=== PATIENT | male | born 1965 | race Caucasian/White ===

== ENCOUNTER 2018-04-27 09:00 | Outpatient (CLI) | payer OTHER, SELFPAY ==
--- NOTE | 2018-04-27 | PFT_ITS ---
PULMONARY FUNCTION TEST REPORT Patient identification - Heriberto Amezcua DATE OF - 65 DATE OF SERVICE - April 27, 2018 REQUESTING PROVIDER - Tatyana Canchola NP INTERPRETATION OF STUDY Spirometry shows mild obstructive airways disease with no significant bronchodilator response. IMPRESSION Mild obstructive airways disease with no significant bronchodilator response. Clinical correlation recommended. Lelo Hodge M.D. CASSIUS/anisa T - 04/28/2018
[2018-04-27] MEDS: Inhaler, Assist Device 1 EACH MC (15:38)
[2018-04-27] MEDS: Albuterol HFA 18 GM 200 PUFF INH IH (15:38)
== END 2018-04-27 09:20 ==
PROVIDERS: PCP Nurse Practitioner; Visit Provider Nurse Practitioner
DX: J45.909 Unspecified asthma, uncomplicated (principal)
CPT/HCPCS: 94060

== ENCOUNTER 2018-05-12 13:35 | Emergency (ER) | payer OTHER, SELFPAY ==
--- NOTE | 2018-05-12 14:05 | NUR.NOTE ---
pt slipped on ice at 1420 pt landed on left shoulder since this PT has had 10/10 pain focusing on the left collar bone
[2018-05-12 14:08] VITALS: BP 125/85; PULSE 97; RESP 15; TEMP 36.8; O2SAT 97
--- NOTE | 2018-05-12 14:22 | DI.RAD_ITS ---
SYMPTOMS/DIAGNOSIS: PAIN AT LEFT SHOULDER ALL OVER S/P FALL, ? FX LEFT CLAVICLE: No fracture is identified. There are mild degenerative changes at the AC joint. IMPRESSION: No acute abnormality. LEFT SHOULDER: No fracture or dislocation is seen. There are degenerative changes at the glenohumeral joint. Mild degenerative changes are also seen at the acromioclavicular joint. IMPRESSION: Degenerative changes. No acute abnormality.
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
[2018-05-12] MEDS: Acetaminophen 500 MG TAB 1000 MG PO (14:51)
[2018-05-12] MEDS: Ibuprofen 800 MG TAB PO (14:53)
[2018-05-12 21:02] VITALS: BP 125/85; PULSE 97; RESP 15; TEMP 36.8; O2SAT 97
[2018-05-12] MEDS: Lidocaine 5% Patch 1 PATCH TP (21:02)
== END 2018-05-12 16:04 | disposition home or self-care (01) ==
PROVIDERS: Emergency Provider Student in an Organized Health Care Education/Training Program; PCP Nurse Practitioner
DX: S43.402A Unspecified sprain of left shoulder joint, initial encounter (principal); W01.0XXA Fall on same level from slipping, tripping and stumbling without subsequent striking against object, initial encounter
CPT/HCPCS: 99284; 73000; 73030; L3650

== ENCOUNTER 2018-05-18 08:15 | Outpatient (CLI) | payer OTHER, SELFPAY ==
[2018-05-18 10:38] LABS: ALT 32 U/L (12-78); AST 22 U/L (15-37); Albumin 3.9 g/dL (3.4-5.0); Alkaline Phosphatase 64 U/L (46-116); Anion Gap 9.8 mmol/L (3-11); BUN 25 mg/dL (7-18); Bilirubin, Total 0.6 mg/dL (0.2-1.0); CO2 27.2 mmol/L (21.0-32.0); CREATININE 1.17 mg/dL (0.70-1.30); Calcium 9.1 mg/dL (8.5-10.1); Chloride 106 mmol/L (98-107); Cholesterol 265 mg/dL (50-200); Glucose 117 mg/dL (70-100); HDL Cholesterol 42 mg/dL (40-60); LDL CHOLESTEROL 153 mg/dL (<100); Potassium 4.3 mmol/L (3.5-5.1); Sodium 143 mmol/L (136-145); TSH (W/Ref FT4) 1.44 uIU/mL (0.358-3.74); Total Protein 7.3 g/dL (6.4-8.2); Triglyceride 281 mg/dL (30-150)
[2018-05-19 10:20] LABS: HBs Antibody, Qual Negative; HBs Antibody, Quant <3.1 mIU/mL; Hepatitis B Core Antibody Negative (NEGAT); Hepatitis B surface Ag Negative (NEGAT); Hepatitis C Ab w Rflx HCV PCR Negative (NEGAT)
[2018-05-19 10:22] LABS: HIV-1/2 Ag & Ab Screen Negative (NEGAT)
[2018-05-19 11:57] LABS: Syphilis Serology (RPR) Negative (Negative)
[2018-05-19 13:38] LABS: Chlamydia Result Negative; GC Result Negative; Specimen Description URINE
[2018-05-20 00:22] LABS: HSV 1 PCR, Blood Negative (Negative); HSV 2 PCR, Blood Negative (Negative)
== END 2018-05-18 08:35 ==
PROVIDERS: PCP Nurse Practitioner; Visit Provider Nurse Practitioner
DX: E03.9 Hypothyroidism, unspecified (principal); E78.1 Pure hyperglyceridemia; E78.00 Pure hypercholesterolemia, unspecified; Z11.4 Encounter for screening for human immunodeficiency virus [HIV]; Z11.3 Encounter for screening for infections with a predominantly sexual mode of transmission; Z11.59 Encounter for screening for other viral diseases
CPT/HCPCS: 36415; 80053; 80061; 83721; 86704; 86706; 86803; 87340; 87389; 87491; 87529; 87591; 84443; 86592

== ENCOUNTER 2019-02-25 13:26 | Emergency (ER) | payer OTHER, SELFPAY ==
[2019-02-25 13:29] VITALS: BP 103/70; PULSE 82; RESP 18; O2SAT 96
--- NOTE | 2019-02-25 13:41 | W.ED.GENAD ---
Discharge Plan Disposition Patient Disposition: HOME Condition: Stable Discharge Details Chief Complaint: Nk/Back Pain Clinical Impression: Low back pain Primary Care Provider: Tatyana Canchola ED Provider: Stew Merino Home Meds and New Rx's Prescriptions: New cyclobenzaprine 10 mg tablet 10 mg PO TID PRN (Reason: muscle spasm) Qty: 20 RF: 0 Continued hydrocortisone [Anusol-HC] 2.5 % cream with perineal applicator 1 applic RI BID-QID PRN (Reason: hemorrhoids) Qty: 30 RF: 2 meloxicam 15 mg tablet 15 mg PO DAILY Qty: 90 RF: 3 (DME) Space Chamber Plus 1 EACH spacer Miscellaneous Qty: 1 RF: 0 levothyroxine 150 mcg tablet 150 mcg PO DAILY Qty: 90 RF: 3 gabapentin 300 mg capsule 600 mg PO BID Qty: 120 RF: 12 clonazepam [Klonopin] 1 mg tablet 1 mg PO QID Qty: 112 RF: 4 sildenafil 100 mg tablet 100 mg PO DAILY PRN (Reason: sexual activity) Qty: 3 RF: 6 trazodone 150 mg Tablet 150 mg PO DAILY RF: 0 albuterol sulfate 90 mcg/actuation Hfa Aerosol Inhaler 2 puff INHALATION PRN PRNRF: 0 Discharge Instructions Instructions: Low Back Strain (ED) Additional Instructions: take 1000mg tylenol and 600mg ibuprofen every 6 hours for pain as needed follow up with your primary care provider next week if not improving do not drink alcohol or drive if you take the cyclobenzaprine if you have high fevers, difficulty urinating or abdominal pain return to the emergency department Stand Alone Forms: Physical Therapy Referral Medical Decision Making 54 yo male comes in with right lower back pain. It started earlier today when he was bending down to tie his shoe. Denies falls, trauma and denies any fevers or ivdu.Has no weakness, normal reflexes and pulses and no saddle anesethesia. No midline back tenderness, has pain over right lower lumbar region. Given lack of trauma do not feel xray indicated. no findings to suggest sea or cauda equina and do not feel emergent MRI indicated. No infectious symptoms to suggest pathology such as osteo. His exam is consistent with back strain vs muscle spasm, and possible disc herniation. Will give toradol and tylenol here and reassess pt declined toradol, just wants ibuprofen and tylenol and would prefer d/c which is reasonable given reassurig exam. Return precautions given Differential Diagnosis Differential Diagnosis: strain, spasm, disc herniation HPI General Mode of arrival: ambulatory. Date/Time Provider Initiated Documentation: 02/25/19 13:34. Limitations to Documentation: no limitations. Information obtained by: patient. History of Present Illness 54 year old M presents to the emergency department with the chief complaint of right lower back pain, described as moderate, Patient started experiencing this hour(s) (4) No relieving factors improve symptom(s), No exacerbating factors reported . Patient did receive the following treatments prior to arrival, none Related Data Home Medications Medication Instructions Recorded Confirmed Space Chamber Plus #1 10/16/16 01/13/19 levothyroxine 150 mcg tablet 150 mcg PO DAILY #90 tab-cap 05/17/18 02/25/19 meloxicam 15 mg tablet 15 mg PO DAILY #90 tab-cap 09/09/18 02/25/19 clonazepam 1 mg tablet 1 mg PO QID #112 tab-cap 11/04/18 02/25/19 gabapentin 300 mg capsule 600 mg PO BID #120 tab-cap 11/04/18 02/25/19 hydrocortisone 2.5 % topical cream 1 applic RI BID-QID PRN #30 gm 01/13/19 02/25/19 with perineal applicator sildenafil 100 mg tablet 100 mg PO DAILY PRN #3 tab 02/11/19 02/25/19 albuterol sulfate 2 puff INHALATION PRN PRN 02/25/19 02/25/19 cyclobenzaprine 10 mg PO TID PRN #20 tab 02/25/19 trazodone 150 mg PO DAILY 02/25/19 02/25/19 Previous Rx's Medication Instructions Recorded levothyroxine 150 mcg tablet 150 mcg PO DAILY #90 tab-cap 05/17/18 meloxicam 15 mg tablet 15 mg PO DAILY #90 tab-cap 09/09/18 clonazepam 1 mg tablet 1 mg PO QID #112 tab-cap 11/04/18 gabapentin 300 mg capsule 600 mg PO BID #120 tab-cap 11/04/18 hydrocortisone 2.5 % topical cream 1 applic RI BID-QID PRN #30 gm 01/13/19 with perineal applicator sildenafil 100 mg tablet 100 mg PO DAILY PRN #3 tab 02/11/19 cyclobenzaprine 10 mg PO TID PRN #20 tab 02/25/19 Allergies Allergy/AdvReac Type Severity Reaction Status Date / Time scallops AdvReac Severe vomitting Verified 02/25/19 14:06 General Stated Complaint: Nk/Back Pain BERTHA: 3 Review of Systems All systems reviewed & are unremarkable except as noted in HPI and below Constitutional Constitutional: Denies chills, Denies fever(s) and Denies weakness Cardiovascular Cardiovascular: Denies dyspnea Respiratory Respiratory: Denies dyspnea Gastrointestinal Gastrointestinal: Denies abdominal pain, Denies nausea and Denies vomiting Musculoskeletal Musculoskeletal: Denies joint swelling Neurologic Neurologic: Denies weakness [facility] Social History (Updated 09/09/18 @ 10:12 by Zuleyka Perry RN) Smoking/Tobacco Use Status: Former Tobacco Use Alcohol Intake: current Alcohol Intake frequency: a few times a week Alcohol type: beer Drug use: Occasionally Substance use type: marijuana Adopted: Yes Caregiver/Support person: No Communication Needs: None current occupation: retired What type of physical activity do you participate in: walking Duration: 60-90 minutes/day Frequency: 3-4 times per week Seatbelt use: always Do you feel safe in your relationship?: Yes Exam Const General: no acute distress Orientation: alert HENMT Head: normal to inspection Ears: external ears normal General nose exam: external nose normal Mouth: moist mucous membranes Eyes General: appearance normal, both eyes and all related structures Neck Neck: normal visual inspection Resp Effort & Inspection: normal respiratory effort and able to speak in complete sentences Cardio Rate: regular rate Back/Spine/Pelvis Back: no CVA tenderness Skin General skin exam: no rashes or lesions noted Neuro General: alert and oriented x3 Extrem General: normal to inspection Psych Mental Status: mental status grossly normal Course Vital Signs Vital signs: Vital Signs Pulse 82 02/25/19 13:29 Respiratory Rate 18 02/25/19 13:29 Blood Pressure 103/70 02/25/19 13:29 Pulse Oximetry 96 02/25/19 13:29 Pulse 82 02/25/19 13:29 Respiratory Rate 18 02/25/19 13:29 Respiratory Effort 02/25/19 13:34 Blood Pressure 103/70 02/25/19 13:29 Blood Pressure Position Sitting 02/25/19 13:29 Pulse Oximetry 96 11/22/19 13:29 Oxygen Delivery Method Room Air 02/25/19 13:29 Oxygen Flow Rate 0 02/25/19 13:29 Pain Level 10 02/25/19 13:29
[2019-02-25] MEDS: Acetaminophen 500 MG TAB 1000 MG PO (14:29)
[2019-02-25] MEDS: Ibuprofen 600 MG TAB PO (14:29)
[2019-02-25] MEDS: Cyclobenzaprine 10 MG TAB, 3 TABS/BTL PO (14:31)
== END 2019-02-25 14:38 | disposition home or self-care (01) ==
PROVIDERS: Emergency Provider Emergency Medicine; PCP Nurse Practitioner
DX: M54.5 Low back pain (principal); J44.9 Chronic obstructive pulmonary disease, unspecified; Z87.891 Personal history of nicotine dependence
CPT/HCPCS: 96372; 99284

== ENCOUNTER 2019-09-23 13:09 | Outpatient (CLI) | payer OTHER, SELFPAY ==
[2019-09-24 17:44] LABS: COVID-19 RT-PCR UVMMC Result Negative (Negative)
== END 2019-09-23 13:29 ==
PROVIDERS: PCP Nurse Practitioner; Visit Provider Nurse Practitioner Family
DX: J02.9 Acute pharyngitis, unspecified (principal)
CPT/HCPCS: U0003

== ENCOUNTER 2019-12-09 13:14 | Emergency (ER) | payer OTHER, SELFPAY ==
[2019-12-09] VITALS (37 sets, daily range): BP systolic 104–141; BP diastolic 57–81; PULSE 45–74; RESP 12–20; TEMP 36.4–36.7; O2SAT 90–98
--- NOTE | 2019-12-09 13:15 | RT.EKG_ITS ---
APPROVED REPORT Exam: Resting ECG Patient Location: E HR:65 bpm ECG Measurements Heart Rate 65 AXIS DE 162 P 49 QRSd 105 QRS -19 QT 394 T 31 QTc 412 Conclusion Sinus rhythm...normal P axis, V-rate 60- 99. Sinus. No STEMI. Nondiagnostic.
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
--- NOTE | 2019-12-09 13:45 | DI.CT_ITS ---
EXAM: CT CHEST PE CTA CLINICAL HISTORY: pleuritic chest pain, r/o PE/pneumonia. TECHNIQUE: Imaging Protocol: Axial CT angiography was performed with multi-slice acquisition and mu lti-planar and/or 3D reconstructions. CONTRAST MATERIAL: Intravenous: Omnipaque 350 Contrast volume:85 mL COMPARISON: CR XR shoulder LT complete 2+V from 05/12/2018 FINDINGS: Pulmonary Arteries: No evidence of filling defect to suggest pulmonary emboli. Tracheobronchial tree: Patent where visualized. Mediastinum and Josie: No dominant adenopathy or fluid collection. Pulmonary parenchyma: Atelectasis or scarring is seen in the lung bases. Mild centrilobular emphysem a. Pleura: No effusion or pneumothorax. Heart: The heart is not dilated. No coronary artery calcifications are seen. No pericardial effusion. Aorta: Thoracic aorta non-dilated. No dissection. Upper abdomen: Unremarkable. Bones: Degenerative changes. Soft tissues: Unremarkable. IMPRESSION: No evidence of pulmonary embolism, thoracic aortic dissection or aneurysm. Findings were discussed with the emergency department on the date of the examination. RADIATION DOSE DELIVERED: Total DLP DATA REPOSITORY: All CT scans at this facility are submitted to the National Radiology Data Registry (NRDR) Dose Index Registry (DIR) with the [employer] (ACR). RADIATION OPTIMIZATION: All CT scans at this facility use at least one of these dose optimization te chniques: automated exposure control; mA and/or kV adjustment per patient size (includes targeted exa ms where dose is matched to clinical indication); or iterative reconstruction.
[2019-12-09] MEDS: Normal Saline 1,000 ML 1000 ML IV (14:04)
[2019-12-09 14:07] LABS: Abs Immature Grans 0.02 10^3/uL (0.0-0.06); Absolute Basophil Count 0.04 10^3/uL (0.0-0.2); Absolute Eosinophil Count 0.16 10^3/uL (0.0-0.7); Absolute Lymphocyte Count 1.83 10^3/uL (1.2-3.4); Absolute Neutrophil Count 2.77 10^3/uL (1.2-6.7); Basophils % 0.8; Eosinophils % 3.1; HCT 45.4 % (40.0-50.0); HGB 15.1 g/dL (13.5-17.5); Immature Grans % 0.4; Lymphocytes % 35.1; MCH 30.4 pg (27.0-33.0); MCHC 33.3 % (32.0-36.0); MCV 91.5 fL (80-95); MPV 11.7 fL (8.0-11.0); Monocytes % 7.7; Neutrophils % 52.9; Nucleated RBC 0 %; Platelet Count 194 10^3/uL (130-400); RBC 4.96 10^6/uL (4.36-5.78); RDW 12.6 % (11.8-14.1); WBC 5.22 10^3/uL (4.4-10.8)
[2019-12-09 14:17] LABS: Lipase 81 U/L (73-393)
[2019-12-09 14:22] LABS: PTT Activated 26.4 sec (21.0-31.4); Prothrombin Time 10.2 sec (9.3-11.0)
[2019-12-09 14:25] LABS: ALT 26 U/L (16-63); AST 10 U/L (15-37); Albumin 3.7 g/dL (3.4-5.0); Alkaline Phosphatase 55 U/L (46-116); BUN 14 mg/dL (7-18); Bilirubin, Total 0.5 mg/dL (0.2-1.0); CREATININE 1.08 mg/dL (0.70-1.30); Calcium 8.8 mg/dL (8.5-10.1); Chloride 107 mmol/L (98-107); Glucose 104 mg/dL (74-106); Magnesium 2.1 mg/dL (1.8-2.4); Potassium 3.9 mmol/L (3.5-5.1); Sodium 143 mmol/L (136-145); Total Protein 6.8 g/dL (6.4-8.2)
[2019-12-09 14:30] LABS: Troponin I < 0.05 ng/mL (<0.06)
== END 2019-12-09 18:04 | disposition home or self-care (01) ==
PROVIDERS: Emergency Provider Physician Assistant; PCP Nurse Practitioner
DX: R07.89 Other chest pain (principal); J44.9 Chronic obstructive pulmonary disease, unspecified; Z87.891 Personal history of nicotine dependence
CPT/HCPCS: 36415; 71275; 80053; 83690; 93005; 96360; 96361; 99285; 83735; 84484; 85025; 85610; 85730; 93010

== ENCOUNTER 2019-12-15 00:27 | Outpatient (CLI) | payer OTHER, SELFPAY ==
--- NOTE | 2019-12-15 13:00 | ETT_ITS ---
APPROVED REPORT Exam: Exercise Treadmill Patient Location: Out-Patient Room/Bed: Stress Nurse: Ebonie Petersen RN BMI: 30.01 Baseline Rhythm: Sinus Rhythm Indications: Patient was seen in the ED on 12/09/2019 for left sided chest pain (2/10) and occasional l eft arm numbness when hiking. Patient describes the chest discomfort as when you can ???feel your hea rt physically??? or ???like when I broke up with my fianc???. He reports the chest pain is relieved w ith sitting down. He states he has had a few episodes of chest pain/arm numbness when hiking since hi s ED visit. Medical History Medical History: Anxiety, Thyroid Issues, PTSD. Cardiac Medications: Sildenafil. Allergies: Scallops Cardiac Risk Factors: Hyperlipidemia, Asthma, COPD, Patient is adopted and does not know his family h istory. Previous Cardiac Procedures: None Pretest Chest Pain Characteristics: No chest pain Exercise History: Physically active Physical Disabilities: None Lung Sounds: CTA--with occassional inspiratory wheezes noted. Heart Sounds: Regular Stress Test Details Rest Stress HR Resting HR Supine: 60 bpm Max Heart Rate (APMHR): 166 bpm Resting HR Standin bpm Target HR (85% APMHR): 141 bpm Max HR Achieved: 179 bpm % of APMHR: 107 HR response to stress: Normal HR response to stress BP Resting BP Supine: 118/76 mmHg Resting BP Standin/80 mmHg Max BP: 178/60 mmHg BP response to stress: Normal blood pressure response to stress. ECG Resting ECG: Sinus Rhythm Stress ECG: Sinus Tachycardia ST Change: Normal Arrhythmia: None Recovery ECG: Sinus Rhythm Recovery ST Change: Normal Recovery Arrhythmia: None Clinical Reason for Termination: Fatigue Stress Symptoms: None reported per patient Exercise duration: 12 min22 sec Highest Stage Reached: Stage 4: 4.2 mph at 16% grade. Exercise capacity: 13.72 METs Functional Capacity: Above average capacity Stress ECG Conclusion 1. The patient exercised for 12 minutes (14 METS). 2. The patient no symptoms suggestive of ischemia. 3. There is no evidence of ischemia on the EKG portion of this exam. 4. The Campbell Score ( 12) estimates an annual cardiovascular mortality of 0% and a five year survival o f 96%. Using the Campbell Score there is a low probability of any angiographic coronary disease. Stress Test Summary STAGE Time (mins) Speed (mph) Grade (%) HR BP SYMPTOMS METS Supine 60 118/76 Standing 75 114/80 1 3 1.7 10 121 126/74 4.6 2 6 2.5 12 132 138/68 7 3 9 3.4 14 146 152/64 10.2 4 12 4.2 16 171 12.9 1 min recovery 164 178/60 3 min recovery 119 162/64 6 min recovery 100 126/70 9 min recovery 94 120/68 12 min recovery 87 116/72
== END 2019-12-15 00:47 ==
PROVIDERS: PCP Nurse Practitioner; Visit Provider Physician Assistant
DX: E78.5 Hyperlipidemia, unspecified; J44.9 Chronic obstructive pulmonary disease, unspecified; R07.89 Other chest pain
CPT/HCPCS: 93306; 93017

== ENCOUNTER 2019-12-15 03:10 | Outpatient (CLI) | payer OTHER, SELFPAY ==
[2019-12-15 09:57] LABS: ALT 31 U/L (16-63); AST 18 U/L (15-37); Alkaline Phosphatase 75 U/L (46-116); Anion Gap 7.7 mmol/L (3-11); BUN 20 mg/dL (7-18); Bilirubin, Total 0.5 mg/dL (0.2-1.0); CO2 27.3 mmol/L (21.0-32.0); CREATININE 1.13 mg/dL (0.70-1.30); Calcium 8.4 mg/dL (8.5-10.1); Chloride 109 mmol/L (98-107); Cholesterol 213 mg/dL (<200); Glucose 107 mg/dL (74-106); HDL Cholesterol 27 mg/dL (40-60); Potassium 4.1 mmol/L (3.5-5.1); Sodium 144 mmol/L (136-145); TSH (W/Ref FT4) 0.89 uIU/mL (0.36-3.74); Total Protein 6.7 g/dL (6.4-8.2); Triglyceride 477 mg/dL (<150)
[2019-12-15 10:12] LABS: LDL CHOLESTEROL 95 mg/dL (<100)
== END 2019-12-15 03:30 ==
PROVIDERS: PCP Nurse Practitioner; Visit Provider Nurse Practitioner
DX: E03.9 Hypothyroidism, unspecified (principal); E78.00 Pure hypercholesterolemia, unspecified
CPT/HCPCS: 36415; 80053; 80061; 83721; 84443

== ENCOUNTER 2020-04-10 01:20 | Outpatient (CLI) | payer OTHER, SELFPAY ==
--- NOTE | 2020-04-10 10:12 | DI.RAD_ITS ---
EXAM: XR SHOULDER RT COMPLETE 2+V CLINICAL HISTORY: Anterior right shoulder pain for about a month,M25.511. TECHNIQUE: 2D digital imaging was performed. COMPARISON: No exams were available for comparison FINDINGS: BONES: No acute fracture is present. No bony destructive lesion is seen. JOINTS: No dislocation present. [id number] degenerative changes are seen at the right glenohume ral joint characterized by joint space narrowing and marginal osteophytes. Mild degenerative changes are seen at the AC joint. SOFT TISSUE: Normal. IMPRESSION: Degenerative changes of the right shoulder as described. DATA REPOSITORY: RADIATION DOSE DELIVERED:
== END 2020-04-10 01:40 ==
PROVIDERS: PCP Nurse Practitioner; Visit Provider Nurse Practitioner
DX: M19.011 Primary osteoarthritis, right shoulder (principal)
CPT/HCPCS: 73030

== ENCOUNTER 2020-05-14 18:06 | Emergency (ER) | payer OTHER, SELFPAY ==
--- NOTE | 2020-05-14 18:00 | RT.EKG_ITS ---
APPROVED REPORT Exam: Resting ECG Patient Location: E HR:90 bpm ECG Measurements Heart Rate 90 AXIS IL 179 P 69 QRSd 102 QRS -8 QT 344 T 44 QTc 421 Conclusion Sinus rhythm...normal P axis, V-rate 60- 99
[2020-05-14 18:06] VITALS: BP 121/104; PULSE 96; RESP 18; TEMP 37.1; O2SAT 96
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
[2020-05-14 18:43] LABS: Abs Immature Grans 0.02 10^3/uL (0.0-0.06); Absolute Basophil Count 0.07 10^3/uL (0.0-0.2); Absolute Eosinophil Count 0.06 10^3/uL (0.0-0.7); Absolute Lymphocyte Count 1.39 10^3/uL (1.2-3.4); Absolute Monocyte Count 0.66 10^3/uL (0.1-0.8); Absolute Neutrophil Count 6.77 10^3/uL (1.2-6.7); Basophils % 0.8; Eosinophils % 0.7; HCT 46.9 % (40.0-50.0); HGB 15.8 g/dL (13.5-17.5); Immature Grans % 0.2; Lymphocytes % 15.5; MCH 30.3 pg (27.0-33.0); MCHC 33.7 % (32.0-36.0); MCV 89.8 fL (80-95); Monocytes % 7.4; Neutrophils % 75.4; Nucleated RBC 0 %; Platelet Count 203 10^3/uL (130-400); RBC 5.22 10^6/uL (4.36-5.78); RDW 12.1 % (11.8-14.1); RDW-SD 40.8 fL; WBC 8.97 10^3/uL (4.4-10.8)
[2020-05-14 18:48] LABS: BUN 18 mg/dL (7-18); CREATININE 1.1 mg/dL (0.70-1.30); Calcium 8.9 mg/dL (8.5-10.1); Chloride 111 mmol/L (98-107); Glucose 90 mg/dL (74-106); Sodium 148 mmol/L (136-145)
[2020-05-14 18:53] VITALS: PULSE 93; RESP 18; O2SAT 96
[2020-05-14 19:00] VITALS: BP 126/104; PULSE 88; RESP 22; TEMP 36.8; O2SAT 97
[2020-05-14 19:30] VITALS: BP 120/80; PULSE 94; RESP 23; TEMP 37; O2SAT 95
== END 2020-05-14 19:50 | disposition home or self-care (01) ==
LOC: ER 19:32
PROVIDERS: Emergency Provider Emergency Medicine; PCP Nurse Practitioner
DX: T68.XXXA Hypothermia, initial encounter (principal); X31.XXXA Exposure to excessive natural cold, initial encounter
CPT/HCPCS: 36415; 80048; 93005; 99283; 85025; 93010; 99284

== ENCOUNTER 2020-07-02 04:32 | Outpatient (CLI) | payer OTHER, SELFPAY ==
[2020-07-02 11:39] LABS: Hemoglobin A1C 5.7 % (<5.7)
[2020-07-02 12:24] LABS: Cholesterol 235 mg/dL (<200); Glucose 96 mg/dL (74-106); HDL Cholesterol 33 mg/dL (40-60); Triglyceride 427 mg/dL (<150)
[2020-07-02 12:44] LABS: LDL CHOLESTEROL 103 mg/dL (<100)
== END 2020-07-02 04:33 | disposition home or self-care (01) ==
LOC: LBO 04:32
PROVIDERS: Internal Medicine; PCP Nurse Practitioner; Visit Provider Nurse Practitioner
DX: E78.1 Pure hyperglyceridemia (principal); R73.01 Impaired fasting glucose
CPT/HCPCS: 36415; 80061; 82947; 83721; 83036

== ENCOUNTER → 2020-07-16 10:55 | Outpatient (BNVA) | payer OTHER, SELFPAY | PROVIDERS: PCP Nurse Practitioner; Referring Provider Nurse Practitioner; Visit Provider Surgery | DX: K64.4 Residual hemorrhoidal skin tags (principal); K64.9 Unspecified hemorrhoids; J44.9 Chronic obstructive pulmonary disease, unspecified; F12.90 Cannabis use, unspecified, uncomplicated | CPT/HCPCS: 99202; 99213 ==

== ENCOUNTER → 2020-07-25 11:06 | Outpatient (BNVA) | payer OTHER, SELFPAY | PROVIDERS: PCP Nurse Practitioner; Referring Provider Nurse Practitioner; Visit Provider Student in an Organized Health Care Education/Training Program | DX: M25.511 Pain in right shoulder (principal); M75.41 Impingement syndrome of right shoulder | CPT/HCPCS: 99203; 99213 ==

== ENCOUNTER 2020-08-23 02:08 | Outpatient (CLI) | payer OTHER, SELFPAY ==
--- NOTE | 2020-08-23 07:15 | DI.MRI_ITS ---
Exam(s) MR UPPER JOINT RT WO EXAM: MR UPPER JOINT RT WO CLINICAL HISTORY: R SHOULDER PAIN,ROTATOR CUFF IMPINGEMENT,TRAUMATIC TEAR RT ROTATOR CUFF TECHNIQUE: Multiplanar multisequence MRI of the shoulder was performed. COMPARISON: CR XR SHOULDER RT COMPLETE 2+V from 04/10/2020 FINDINGS: MARROW:There is no evidence of fracture, Hill-Sachs deformity, nor ominous osseous lesions. There is a 15 x 8 millimeter septated degenerative subarticular cyst in the posterolateral aspect of the humer al head subjacent to the infraspinatus insertion site on the posterior aspect of the greater tuberosi ty. There is also subarticular edema in the osseous glenoid as well as a degenerative subarticular c yst measuring 5 x 4 millimeters in the inferior aspect of the osseous glenoid and another adjacent sm aller intraosseous cysts at the same location. There does not appear to be an obvious bony Bankart l esion at this level. ROTATOR CUFF MECHANISM: AC JOINT/ACROMIUM: There are mild degenerative changes in the AC joint. No downgoing osteophytes. M ild impingement. There is no evidence of os acromiale. Supraspinatus: There is partial thickness articular side tearing superimposed upon tendinitis signal. There is no retraction of the musculotendinous junction. No prominent muscle belly atrophy. Infraspinatus: Intact. No evidence of tear nor muscle atrophy. Conglomeration of degenerative subar ticular cysts are seen in the posterolateral humeral head immediately subjacent to the intact infrasp inatus tendon. There is no atrophy of the infraspinatus muscle belly. Teres Minor: Intact. No evidence of tear nor muscle atrophy. Subscapularis/anterior cuff: Intact. No abnormal signal at the level of the multipennate insertional fibers. No significant tear nor atrophy. BICEPS TENDON/LABRUM: Normally position in the intertubercular groove. No evidence of displacement. However, there is signal abnormality at the biceps anchor as well as in the superior labrum at and p osterior to the biceps insertion, consistent with element of SLAP tear. This labral tear extends int o the posterior labrum. There is also intrasubstance signal abnormality in the anterior labrum consi stent an element of tearing. There is also attenuation of the inferior labrum. There is no evidence of paralabral cyst. There is fluid in the long head biceps tendon sheath although this is probably continuation of fluid from the moderate-sized glenohumeral joint effusion. GLENOHUMERAL JOINT: There are significant osteoarthritic degenerative changes including significant c artilage thinning, degenerative subarticular cysts and bone edema as described above as well as moder ate size osteophyte on the inferior articular surface of the humeral head. There is also synovial th ickening noted in the inferior recess. Inferior glenohumeral ligament is intact. QUADRILATERAL SPACE: No evidence of mass in the region of the axillary nerve and dorsal circumflex hu meral vessels. Visualized triceps muscle at this level appears unremarkable. IMPRESSION: 1. There are significant osteoarthritic degenerative changes in the glenohumeral joint including sign ificant cartilage loss, subarticular bone edema and degenerative subarticular cysts in the osseous gl enoid, as well as osteophytes. There is a glenohumeral joint effusion of moderate size and extending down the biceps tendon sheath and there is some synovial thickening which is most evident in the inf erior recess. There is no obvious loose intra-articular body within the joint space nor within the b iceps tendon sheath.. 2. There is articular surface partial thickness tearing of the supraspinatus but without a full-thick ness tear and there is no retraction musculotendinous junction nor muscle atrophy. The other muscula r components of the rotator cuff mechanism are intact. A lumbar a ortiz of degenerative subarticular cysts are seen in the posterior aspect of the greater tuberosity subjacent to intact infraspinatus te ndon insertion. 3. There is signal abnormality consistent with tearing at the level of the superior labrum attachment site of the biceps as well as extending posteriorly in SLAP-type fashion and extending into the post erior labrum. There is also some tearing of the anterior labrum evident. There is no evidence of pa ralabral cyst. DATA REPOSITORY:
== END 2020-08-23 02:28 ==
LOC: DI 02:08
PROVIDERS: PCP Nurse Practitioner; Visit Provider Student in an Organized Health Care Education/Training Program
DX: S46.011A Strain of muscle(s) and tendon(s) of the rotator cuff of right shoulder, initial encounter (principal); M75.41 Impingement syndrome of right shoulder; M19.011 Primary osteoarthritis, right shoulder
CPT/HCPCS: 73221

== ENCOUNTER → 2020-08-28 10:35 | Outpatient (BNVA) | payer OTHER, SELFPAY | PROVIDERS: PCP Nurse Practitioner; Referring Provider Nurse Practitioner; Visit Provider Student in an Organized Health Care Education/Training Program | DX: S46.011D Strain of muscle(s) and tendon(s) of the rotator cuff of right shoulder, subsequent encounter (principal); M75.41 Impingement syndrome of right shoulder; M19.011 Primary osteoarthritis, right shoulder; X58.XXXD Exposure to other specified factors, subsequent encounter | CPT/HCPCS: 99213; 99214 ==

== ENCOUNTER 2020-10-04 03:09 | Outpatient (CLI) | payer OTHER, SELFPAY ==
--- NOTE | 2020-10-04 08:15 | DI.RAD_ITS ---
Exam(s) RF JOINT INJECTION FLUORO GUID EXAM: RF JOINT INJECTION FLUORO GUID CLINICAL HISTORY: R SHOULDER PAIN, TRAUMATIC TEAR, ROTATOR CUFF IMPINGMENT SYNDROME TECHNIQUE: Fluoroscopy provided. Radiologist not present. CONTRAST MATERIAL: None COMPARISON: No exams were available for comparison FINDINGS: Fluoroscopy was provided for right shoulder injection Submitted image(s) reveal placement of needle at the level of superomedial aspect of the humeral head . Intra-articular contrast injected. Please refer to the procedure report for complete details. Cumulative Dose: sergey Kothari=6.75 mGy IMPRESSION: RADIATION DOSE DELIVERED:
--- NOTE | 2020-10-04 13:53 | W.PROCNOTE ---
Date of service: 10/04/20 Time of Service: 13:39 Procedure Note Date of procedure: 10/04/20 Procedure: Right Shoulder Injection Surgeon/Proceduralist/Physician: Adonis Pearson Procedure Indications: Heriberto has had persistent pain of the RIGHT shoulder. Noninvasive measures have been tried. To serve as both diagnostic and therapeutic, an injection under fluoroscopy was recommended by Dr. Caal. I had discussed the risks of the procedure and the patient elected to proceed. Procedure Description: Heriberto was greeted in the flouroscopy room. The correct side was identified and the consent was reviewed with the patient and signed. The patient was then placed in the supine position on the fluoroscopy table. The RIGHT shoulder was then prepped with Chloraprep. The anterior injection starting point was identiifed by bony landmarks and fluoroscopy. The skin and soft tissue in the tract of the injection was anesthetized with 1% Lidocaine. A spinal needle was then inserted deep into the shoulder joint at the level of the recess between the glenoid and superior humeral head. A small amount of Omnipaque solution was injected to confirm intraarticular placement. Once confirmed, the shoulder was injected with 5cc of 0.5% Bupivicaine and 80mg of Depo-Medrol. A bandaid was placed on the injection site. The patient tolerated the procedure well and noted improvement in pre-injection pain.
[2020-10-04] MEDS: Bupivacaine 0.5% Pres-Free 10 ML VIAL IJ (14:18)
[2020-10-04] MEDS: Omnipaque 300 MG/ML 10 ML BTL IJ (14:19)
[2020-10-04] MEDS: methylPREDNISolone ACETATE 80 MG/ML VIAL IM (14:20)
== END 2020-10-04 03:29 ==
LOC: DI 03:09
PROVIDERS: PCP Nurse Practitioner; Visit Provider Student in an Organized Health Care Education/Training Program
DX: M19.011 Primary osteoarthritis, right shoulder (principal); M25.511 Pain in right shoulder
CPT/HCPCS: 20610; 77002; J1040

== ENCOUNTER 2021-02-25 10:25 | Outpatient (CLI) | payer MEDICARE, SELFPAY ==
[2021-02-25] MEDS: Albuterol HFA 18 GM 200 PUFF INH IH (16:29)
[2021-02-25] MEDS: Inhaler, Assist Device 1 EACH MC (16:30)
--- NOTE | 2021-02-26 14:34 | W.PFT ---
Date of service: 02/25/21 Time of Service: 15:11 Pulmonary Function Test Result Requesting Provider Tatyana Canchola Indications: Asthma and dyspnea Interpretation Spirometry: There is moderate airflow limitation. There is no significant bronchodilator response. Impression Moderate airflow limitation. Note: When compared to 04/27/18, the FEV1 and FVC have decreased. Clinical Correlation therefore is recommended.
== END 2021-02-25 10:26 | disposition home or self-care (01) ==
LOC: RT 10:29
PROVIDERS: PCP Nurse Practitioner; Visit Provider Nurse Practitioner
DX: J45.909 Unspecified asthma, uncomplicated (principal); R06.09 Other forms of dyspnea; F12.10 Cannabis abuse, uncomplicated; Z87.891 Personal history of nicotine dependence; T59.811S Toxic effect of smoke, accidental (unintentional), sequela; R94.2 Abnormal results of pulmonary function studies
CPT/HCPCS: 94060

== ENCOUNTER 2021-11-05 10:25 | Outpatient (REF) | payer MEDICARE, SELFPAY ==
[2021-11-07 11:07] LABS: COVID-19 RT-PCR UVMMC Result Negative (Negative)
== END 2021-11-05 10:26 | disposition home or self-care (01) ==
LOC: LBN 10:25
PROVIDERS: PCP Nurse Practitioner; Visit Provider Nurse Practitioner
DX: R51.9 Headache, unspecified (principal); R53.83 Other fatigue; Z20.822 Contact with and (suspected) exposure to COVID-19
CPT/HCPCS: 87449; U0003; U0005

== ENCOUNTER 2021-11-19 14:03 | Outpatient (CLI) | payer MEDICARE, SELFPAY ==
--- NOTE | 2021-11-19 14:00 | DI.RAD_ITS ---
Exam(s) XR SHOULDER LT COMPLETE 2+V EXAM: XR SHOULDER LT COMPLETE 2+V CLINICAL HISTORY: left shoulder pain, M25.512. TECHNIQUE: 2D digital imaging was performed. COMPARISON: CR XR SHOULDER RT COMPLETE 2+V from 04/10/2020 FINDINGS: Four views No evidence fracture nor dislocation nor calcifications in the subacromial space. There are signific ant osteoarthritic degenerative changes joint space narrowing in the glenohumeral joint. Also osteop hyte on the inferior articular surface of humeral head. Mild degenerative changes in the AC joint. No osseous lesions. Degenerative subarticular cysts noted in the osseous glenoid. IMPRESSION: Osteoarthritic degenerative changes in the glenohumeral joint. DATA REPOSITORY: RADIATION DOSE DELIVERED:
== END 2021-11-19 14:23 ==
LOC: DI 14:06
PROVIDERS: PCP Nurse Practitioner; Visit Provider Nurse Practitioner
DX: M19.012 Primary osteoarthritis, left shoulder (principal)
CPT/HCPCS: 73030

== ENCOUNTER 2021-11-21 04:06 | Outpatient (CLI) | payer MEDICARE, SELFPAY ==
[2021-11-21 09:30] LABS: HCT 44.3 % (40.0-50.0); HGB 14.3 g/dL (13.5-17.5); MCH 29.1 pg (27.0-33.0); MCHC 32.3 % (32.0-36.0); MCV 90 fL (80-95); MPV 10.4 fL (8.0-11.0); Platelet Count 264 10^3/uL (130-400); RBC 4.91 10^6/uL (4.36-5.78); RDW 13.7 % (11.8-14.1); RDW-SD 45.7 fL; WBC 5.99 10^3/uL (4.4-10.8)
[2021-11-21 10:21] LABS: ALT 40 U/L (16-63); AST 19 U/L (15-37); Albumin 3.1 g/dL (3.4-5.0); Alkaline Phosphatase 95 U/L (46-116); Anion Gap 7.9 mmol/L (3-11); BUN 17 mg/dL (7-18); Bilirubin, Total 0.5 mg/dL (0.2-1.0); CO2 28.1 mmol/L (21.0-32.0); CREATININE 1.1 mg/dL (0.70-1.30); Calcium 8.5 mg/dL (8.5-10.1); Calculated LDL 146 mg/dL (<100); Chloride 107 mmol/L (98-107); Cholesterol 212 mg/dL (<200); Glucose 110 mg/dL (74-106); HDL Cholesterol 25 mg/dL (40-60); Potassium 4.1 mmol/L (3.5-5.1); Sodium 143 mmol/L (136-145); TSH (W/Ref FT4) 0.64 uIU/mL (0.36-3.74); Total Protein 7.5 g/dL (6.4-8.2); Triglyceride 205 mg/dL (<150)
[2021-11-22 10:54] LABS: Lyme Ab w Rflx to Lyme Confirm Positive (Negative)
[2021-11-22 13:00] LABS: Lyme IgG Ab Positive (Negative); Lyme IgM Ab Positive (Negative)
[2021-11-25 00:57] LABS: Anaplasma phagocytophilum Negative (Negative); B. miyamotoi PCR Negative (Negative); Babesia divergens/MO-1 Negative (Negative); Babesia duncani Negative (Negative); Ehrlichia chaffeensis Negative (Negative); Ehrlichia ewingii/canis Negative (Negative); Ehrlichia muris eauclairensis Negative (Negative)
[2021-11-25 06:00] LABS: Babesia microti Positive (Negative)
== END 2021-11-21 04:07 | disposition home or self-care (01) ==
LOC: LBO 04:07
PROVIDERS: PCP Nurse Practitioner; Visit Provider Nurse Practitioner
DX: E03.9 Hypothyroidism, unspecified (principal); E78.1 Pure hyperglyceridemia; R53.83 Other fatigue; M25.512 Pain in left shoulder
CPT/HCPCS: 36415; 80053; 80061; 85027; 86617; 87798; 84443; 86618

== ENCOUNTER 2022-03-05 03:44 | Outpatient (CLI) | payer MEDICARE, SELFPAY ==
[2022-03-05 16:00] LABS: Hemoglobin A1C 5.5 % (<5.7)
== END 2022-03-05 03:45 | disposition home or self-care (01) ==
LOC: LBO 03:45
PROVIDERS: PCP Nurse Practitioner; Visit Provider Nurse Practitioner
DX: R73.01 Impaired fasting glucose (principal); B60.00 Babesiosis, unspecified
CPT/HCPCS: 36415; 83036; 87207

== ENCOUNTER 2022-06-04 03:03 | Outpatient (CLI) | payer MEDICARE, SELFPAY | END 2022-06-04 03:04 | disposition home or self-care (01) | PROVIDERS: PCP Nurse Practitioner; Referring Provider Nurse Practitioner; Visit Provider Nurse Practitioner | DX: Z86.19 Personal history of other infectious and parasitic diseases (principal) | CPT/HCPCS: 36415; 87207 ==

== ENCOUNTER 2022-07-02 10:21 | Outpatient (CLI) | payer MEDICARE, SELFPAY ==
--- NOTE | 2022-07-02 08:30 | DI.RAD_ITS ---
Exam(s) XR KNEE LT 3V AP,LAT,KARISSA EXAM: XR KNEE LT 3V AP,LAT,KARISSA CLINICAL HISTORY: left knee pain. TECHNIQUE: 2D digital imaging was performed of the left knee. Three images were obtained. Merchant ,AP and lateral views were obtained. COMPARISON: CR LEFT KNEE 3 VIEW COMPLETE from 06/10/2017 FINDINGS: BONES: No acute fracture is present. No bony destructive lesion is seen. JOINTS: The knee is normally aligned. No joint effusion is seen. SOFT TISSUE: Normal. IMPRESSION: Normal radiographs of the left knee. DATA REPOSITORY: RADIATION DOSE DELIVERED:
== END 2022-07-02 10:22 | disposition home or self-care (01) ==
LOC: DIORS 10:21
PROVIDERS: PCP Nurse Practitioner; Referring Provider Nurse Practitioner; Visit Provider Student in an Organized Health Care Education/Training Program
DX: S83.242A Other tear of medial meniscus, current injury, left knee, initial encounter (principal); X58.XXXA Exposure to other specified factors, initial encounter
CPT/HCPCS: 73562; 99213

== ENCOUNTER 2022-07-23 01:26 | Outpatient (CLI) | payer MEDICARE, SELFPAY ==
--- NOTE | 2022-07-23 06:45 | DI.MRI_ITS ---
Exam(s) MR LOWER JOINT LT WO EXAM: MR LOWER JOINT LT WO CLINICAL HISTORY: ?medial meniscus tear,,s83.242a, pain. TECHNIQUE: Multiplanar multisequence MRI was performed. COMPARISON: CR XR KNEE LT 3V AP,LAT,KARISSA from 07/02/2022 FINDINGS: BONES: There is no fracture or contusion pattern. JOINTS: There is mild thinning of the articular cartilage in the medial femoral tibial joint. The ar ticular cartilage is otherwise unremarkable. There is a small joint effusion. TENDONS: Extensor mechanism: Unremarkable. Medial retinaculum: Unremarkable. Lateral retinaculum: Unremarkable. Popliteus: Unremarkable. MUSCLES: Unremarkable. MENISCI: There is no evidence of a medial meniscal tear. There is mild intermediate signal seen with in the body and may represent degeneration. The lateral meniscus is unremarkable. SOFT TISSUES: There is fluid seen in the medial soft tissues posteriorly. There does appear to be a popliteal cyst present. This may represent a ruptured popliteal cyst. LIGAMENTS: Anterior Cruciate: Unremarkable. Posterior Cruciate: Unremarkable. Medial Collateral:There is fluid seen around the medial collateral ligament suggesting sprain. No ev idence of a tear. Lateral Collateral: Unremarkable. OTHER: IMPRESSION: 1. MCL sprain. 2. Findings suspicious for a ruptured popliteal cyst. 3. Mild cartilage thinning in the medial femoral tibial joint which may be degenerative in nature. 4. No evidence of a meniscal tear. 5. Joint effusion. DATA REPOSITORY:
== END 2022-07-23 01:46 ==
LOC: DI 01:26
PROVIDERS: PCP Nurse Practitioner; Visit Provider Student in an Organized Health Care Education/Training Program
DX: S83.242A Other tear of medial meniscus, current injury, left knee, initial encounter (principal)
CPT/HCPCS: 73721

== ENCOUNTER → 2022-07-29 08:39 | Outpatient (BNVA) | payer MEDICARE, SELFPAY | PROVIDERS: PCP Nurse Practitioner; Referring Provider Nurse Practitioner; Visit Provider Student in an Organized Health Care Education/Training Program | DX: S83.242A Other tear of medial meniscus, current injury, left knee, initial encounter (principal); X58.XXXA Exposure to other specified factors, initial encounter | CPT/HCPCS: 20610; 99213; J1030 ==

== ENCOUNTER → 2022-09-30 11:34 | Outpatient (BNVA) | payer MEDICARE, SELFPAY | PROVIDERS: PCP Nurse Practitioner; Referring Provider Nurse Practitioner; Visit Provider Student in an Organized Health Care Education/Training Program | DX: S83.242A Other tear of medial meniscus, current injury, left knee, initial encounter (principal); X58.XXXA Exposure to other specified factors, initial encounter | CPT/HCPCS: 99213 ==

== ENCOUNTER 2022-12-26 02:45 | Outpatient (CLI) | payer MEDICARE, SELFPAY ==
[2022-12-28 23:47] LABS: Anaplasma phagocytophilum Negative (Negative); B. miyamotoi PCR Negative (Negative); Babesia divergens/MO-1 Negative (Negative); Babesia duncani Negative (Negative); Babesia microti Negative (Negative); Ehrlichia chaffeensis Negative (Negative); Ehrlichia ewingii/canis Negative (Negative); Ehrlichia muris eauclairensis Negative (Negative)
[2022-12-29 12:00] LABS: Lyme Ab w Rflx to Lyme Confirm Negative (Negative)
== END 2022-12-26 02:46 | disposition home or self-care (01) ==
LOC: LBO 02:45
PROVIDERS: PCP Nurse Practitioner; Visit Provider Nurse Practitioner Family
DX: T14.8XXA Other injury of unspecified body region, initial encounter (principal); W57.XXXA Bitten or stung by nonvenomous insect and other nonvenomous arthropods, initial encounter
CPT/HCPCS: 36415; 87798; 86618

== ENCOUNTER → 2023-03-13 14:36 | Outpatient (CLI) | payer MEDICARE, SELFPAY ==
--- NOTE | 2023-03-13 12:30 | DI.RAD_ITS ---
Exam(s) XR CHEST 2V PA LATERAL EXAM: XR CHEST 2V PA LATERAL CLINICAL HISTORY: R/O pneumonia; J20.9 Acute bronchitis,unspecfied. TECHNIQUE: 2D digital imaging was performed. COMPARISON: Chest x-ray October 2016 FINDINGS: 2 views: Heart size is normal. The mediastinum is not widened. There are no confluent infiltrates but there is subsegmental platelike atelectasis in the lingular se gment the left lung. Mild increased markings in left lower lobe appear unchanged from 2017. IMPRESSION: There is subsegmental platelike atelectasis in the lateral left lung base which was not evident in Ju ly 2017 which is the most recent chest x-ray. No other pulmonary findings and no pleural effusions. DATA REPOSITORY: RADIATION DOSE DELIVERED:
== END ==
PROVIDERS: PCP Nurse Practitioner; Visit Provider Family Medicine
DX: J98.11 Atelectasis (principal)
CPT/HCPCS: 71046

== ENCOUNTER → 2023-05-19 10:36 | Outpatient (BNVA) | payer MEDICARE, SELFPAY | PROVIDERS: PCP Nurse Practitioner; Referring Provider Nurse Practitioner; Visit Provider Physician Assistant Surgical | DX: J44.9 Chronic obstructive pulmonary disease, unspecified (principal); F12.20 Cannabis dependence, uncomplicated | CPT/HCPCS: 99214 ==

== ENCOUNTER 2023-06-30 05:20 | Outpatient (CLI) | payer MEDICARE, SELFPAY ==
[2023-06-30 08:49] LABS: Hemoglobin A1C 5.7 % (<5.7)
[2023-06-30 09:12] LABS: ALT 28 U/L (16-63); AST 14 U/L (15-37); Albumin 3.9 g/dL (3.4-5.0); Alkaline Phosphatase 60 U/L (46-116); Anion Gap 10.1 mmol/L (3-11); BUN 20 mg/dL (7-18); Bilirubin, Total 0.5 mg/dL (0.2-1.0); CO2 27.9 mmol/L (21.0-32.0); CREATININE 1.2 mg/dL (0.70-1.30); Calculated LDL 164 mg/dL (<100); Chloride 107 mmol/L (98-107); Cholesterol 252 mg/dL (<200); Glucose 107 mg/dL (74-106); HDL Cholesterol 40 mg/dL (40-60); Sodium 145 mmol/L (136-145); Total Protein 7.5 g/dL (6.4-8.2); Triglyceride 244 mg/dL (<150)
== END 2023-06-30 05:21 | disposition home or self-care (01) ==
LOC: LBO 05:20
PROVIDERS: PCP Nurse Practitioner; Visit Provider Nurse Practitioner
DX: R73.03 Prediabetes (principal); E78.00 Pure hypercholesterolemia, unspecified
CPT/HCPCS: 36415; 80053; 80061; 83036

== ENCOUNTER → 2023-07-14 11:17 | Outpatient (BNVA) | payer MEDICARE, SELFPAY | PROVIDERS: PCP Nurse Practitioner; Referring Provider Nurse Practitioner; Visit Provider Student in an Organized Health Care Education/Training Program | DX: J44.9 Chronic obstructive pulmonary disease, unspecified (principal); F12.20 Cannabis dependence, uncomplicated | CPT/HCPCS: 99214 ==

== ENCOUNTER 2023-07-21 04:15 | Outpatient (CLI) | payer MEDICARE, SELFPAY ==
[2023-07-21] MEDS: Levalbuterol HFA 15 GM INH 4 PUFF IH (12:04)
[2023-07-21] MEDS: Inhaler, Assist Device 1 EACH MC (12:04)
--- NOTE | 2023-07-24 11:22 | W.PFT ---
Date of service: 07/21/23 Time of Service: 10:06 Pulmonary Function Test Result Indications: ACOS Interpretation Spirometry: There is mild airflow limitation. Positive bronchodilator response. Lung Volumes: Normal lung volumes Diffusion Capacity: Normal diffusion Airway Pressure: Normal airways resistance Impression Mild airflow obstruction with a bronchodilator response and a normal diffusion. Clinical Correlation therefore is recommended.
== END 2023-07-21 04:16 | disposition home or self-care (01) ==
LOC: RT 04:15
PROVIDERS: PCP Nurse Practitioner; Visit Provider Student in an Organized Health Care Education/Training Program
DX: J44.9 Chronic obstructive pulmonary disease, unspecified (principal)
CPT/HCPCS: 94060; 94726; 94729

== ENCOUNTER 2023-09-15 05:12 | Outpatient (CLI) | payer MEDICARE, SELFPAY | END 2023-09-15 05:13 | disposition home or self-care (01) | LOC: LBO 05:13 | PROVIDERS: PCP Nurse Practitioner; Visit Provider Nurse Practitioner | DX: E03.9 Hypothyroidism, unspecified (principal) | CPT/HCPCS: 36415; 84443 ==

== ENCOUNTER 2023-11-06 11:11 | Emergency (ER) | payer MEDICARE, SELFPAY ==
[2023-11-06] VITALS (37 sets, daily range): BP systolic 99–145; BP diastolic 59–90; PULSE 57–106; RESP 0–33; TEMP 36.6; O2SAT 92–98
--- NOTE | 2023-11-06 11:00 | RT.EKG_ITS ---
APPROVED REPORT Exam: Resting ECG Reason for Exam: Chest pain Patient Location: E HR:94 bpm ECG Measurements Heart Rate 94 AXIS MD 194 P 60 QRSd 126 QRS -25 QT 358 T 0 QTc 448 Conclusion Sinus rhythm...normal P axis, V-rate 60- 99 Right bundle branch block...QRSd>120, terminal axis(90,270) sinus, RBBB
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
[2023-11-06 11:31] LABS: Abs Immature Grans 0.02 10^3/uL (0.0-0.06); Absolute Basophil Count 0.05 10^3/uL (0.0-0.2); Absolute Eosinophil Count 0.11 10^3/uL (0.0-0.7); Absolute Lymphocyte Count 1.89 10^3/uL (1.2-3.4); Absolute Monocyte Count 0.54 10^3/uL (0.1-0.8); Absolute Neutrophil Count 3.62 10^3/uL (1.2-6.7); Basophils % 0.8 %; Eosinophils % 1.8 %; HCT 48.7 % (40.0-50.0); HGB 16.5 g/dL (13.5-17.5); Immature Grans % 0.3 %; Lymphocytes % 30.3 %; MCH 30.4 pg (27.0-33.0); MCHC 33.9 % (32.0-36.0); MCV 90 fL (80-95); MPV 10.3 fL (8.0-11.0); Monocytes % 8.7 %; Neutrophils % 58.1 %; Platelet Count 206 10^3/uL (130-400); RBC 5.42 10^6/uL (4.36-5.78); RDW 13.4 % (11.8-14.1); RDW-SD 44.2 fL; WBC 6.23 10^3/uL (4.4-10.8)
[2023-11-06 11:34] LABS: Lactate 2.5 mmol/L (0.6-1.4)
[2023-11-06] MEDS: LORazepam 2 MG/ML VIAL 1 MG IVP (11:36)
[2023-11-06 11:46] LABS: INR 1.1 (0.9-1.1); PTT Activated 27.8 sec (23.6-32.8); Prothrombin Time 10.9 sec (9.1-11.1)
--- NOTE | 2023-11-06 11:51 | DI.RAD_ITS ---
Exam(s) XR PORTABLE CHEST AP EXAM: XR PORTABLE CHEST AP CLINICAL HISTORY: severe chest pain TECHNIQUE: 2D digital imaging was performed. COMPARISON: CR XR CHEST 2V PA LATERAL from 03/13/2023 FINDINGS: LUNGS: Increased densities seen at left lung base could represent atelectasis versus pneumonia. No p leural abnormality seen. HEART: Normal size. AORTA: Normal diameter. BONES: Unremarkable for age. Soft tissues: Unremarkable. IMPRESSION: Question left lower lobe infiltrate versus atelectasis. DATA REPOSITORY: RADIATION DOSE DELIVERED:
[2023-11-06 11:56] LABS: ALT 33 U/L (16-63); AST 21 U/L (15-37); Albumin 3.7 g/dL (3.4-5.0); Alkaline Phosphatase 57 U/L (46-116); Anion Gap 12.5 mmol/L (3-11); BUN 23 mg/dL (7-18); Bilirubin, Total 1.15 mg/dL (0.2-1.0); CO2 22.5 mmol/L (21.0-32.0); CREATININE 1.4 mg/dL (0.70-1.30); Calcium 9.1 mg/dL (8.5-10.1); Chloride 108 mmol/L (98-107); Estimated GFR 58.26 (mL/min/1.73m2); Glucose 122 mg/dL (74-106); Lipase 33 U/L (16-77); Magnesium 1.9 mg/dL (1.8-2.4); NT-proBNP 56 pg/mL (<300); Potassium 3.4 mmol/L (3.5-5.1); Sodium 143 mmol/L (136-145); Troponin I < 50 ng/L (< or =60)
[2023-11-06 12:00] LABS: D-Dimer 378 ng/mlFEU (<500)
[2023-11-06] MEDS: Normal Saline 1,000 ML 1000 ML IV (12:18)
[2023-11-06 13:22] LABS: Lactate 0.9 mmol/L (0.6-1.4)
[2023-11-06 14:49] LABS: Troponin I < 50 ng/L (< or =60)
--- NOTE | 2023-11-06 15:10 | NUR.NOTE ---
Nursing Note: PT needs [facility] cardiology follow up for an Echo / ED follow up. Soraida, ED
== END 2023-11-06 15:13 | disposition home or self-care (01) ==
PROVIDERS: Emergency Provider Physician Assistant; PCP Nurse Practitioner
DX: R07.9 Chest pain, unspecified (principal); J44.9 Chronic obstructive pulmonary disease, unspecified; E78.5 Hyperlipidemia, unspecified; I45.19 Other right bundle-branch block; Z87.891 Personal history of nicotine dependence
CPT/HCPCS: 36415; 80053; 83690; 93005; 96361; 96374; 99285; 71045; 83605; 83735; 83880; 84484; 85025; 85379; 85610; 85730; 93010; 99284; J2060

== ENCOUNTER 2023-11-30 02:25 | Outpatient (CLI) | payer MEDICARE, SELFPAY ==
--- NOTE | 2023-11-30 08:00 | DI.US_ITS ---
APPROVED REPORT EXAM: Comprehensive 2D, Doppler, and color-flow Echocardiogram Patient Location: Out-Patient Software Sales Representative: Christopher Swenson RDCS (AE) Indications: Chest pain, MAURER Other Information Study Quality: Good Conclusion Normal left ventricular wall thickness and chamber size. Ejection fraction is 60%. Wall motion is n ormal Normal right ventricular size and function Both atria are normal in size There is no structural or hemodynamically significant valvular disease Estimated right ventricular systolic pressure is 25 mmHg Wall motion Left Ventricle The left ventricle is normal size. The left ventricular systolic function is normal. The left ventric ular ejection fraction is within the normal range. There is normal left ventricular wall thickness. T here is normal LV segmental wall motion. There is no ventricular septal defect visualized. LVEF is 60 %. Right Ventricle The right ventricle is normal size. The right ventricular systolic function is normal. Atria The left atrium size is normal. The right atrium size is normal. The interatrial septum is intact wit h no evidence for an atrial septal defect. Aortic Valve The aortic valve is normal in structure. Aortic valve is trileaflet. There is no aortic valvular sten osis. Mitral Valve The mitral valve is normal in structure. No evidence of mitral valve stenosis. Trace mitral regurgita tion. Tricuspid Valve The tricuspid valve is normal in structure. There is no tricuspid valve stenosis. Mild tricuspid regu rgitation. The RVSP is 24.8 mmHg. Pulmonic Valve The pulmonary valve is normal in structure. There is no pulmonic valvular stenosis. Mild pulmonic reg urgitation. Great Vessels The aortic root is normal in size. The ascending aorta is normal in size. Aortic arch is not well vis ualized. IVC is normal in size and collapses >50% with inspiration. Pericardium There is no pericardial effusion. 2D Dimensions IVSD d PLAX 0.56 cm M: 0.6-1.2 Ao Root d 2.90 cm M: 3.1 - 3.7 LVPW d PLAX 0.58 cm M: 0.6 - 1.2 Ao Asc Diam d 2.68 cm M: 2.6 - 3.4 LVID d PLAX 5.59 cm M: 4.2 - 5.8 IVC Diam exp d SLAX 2.0 cm LVDs 3.80 cm M: 2.5 - 4.0 LV EF Teichholz 59.4 % FS 31.92 % LV EDV (Teich) 152.8 mL LV ESV (Teich) 62.1 mL Stroke Vol Index (Teich) 47.77 M-Mode TAPSE 2.63 cm (M/F) >1.7 Auto EF LV EDV A4C 103.4 mL LV EDV A2C 90.2 mL LV EDV BP 97.1 mL LV ESV A4C 43.3 mL LV ESV A2C 35.7 mL LV ESV BP 39.3 mL LVEF(%) A4C 58.1 % LVEF(%) A2C 60.4 % LVEF(%) BP 59.5 % LV SV A4C 60.0 ml LV SV A2C 54.5 ml LV SV BP 57.8 ml LV CO A4C 3.5 L/min LV CO A2C 3.3 L/min LV CO BP 3.4 L/min HR A4C 59.02 BPM HR A2C 60.30 BPM LV EDV Index (BP) LA Volume LA Length A4C 4.2 cm LA Length A2C 4.6 cm LA Area A4C s 11.18 cm2 LA Area A2C s 12.96 cm2 LA Vol A4C A-L 25.14 mL LA Vol A2C A-L 31.09 mL LA Vol Biplane A-L 29.1 mL LA Vol/BSA A4C A-L LA Vol/BSA A2C A-L LA Vol/BSA BP A-L 15.3 mL/m2 LA Vol A4C MOD 22.8 mL LA Vol A2C MOD 29.3 mL LA Vol BP MOD 26.8 mL RA Volume RA Area A4C 10.1 cm2 RA ESV A4C (A-L) 25.0mL RA Vol/BSA A4C A-L RA Length A4C 3.4 cm RA ESV A4C (MOD) 23.0mL LV Diastology MV E' medial 0.092 (>0.07 m/s) MV E Vmax 0.94 (0.4-1.3 m/s) MV E/E' MED 10.14 (<14) MV A Vmax 0.65 (0.4-1.3 m/s) MV E' lateral 0.123 (>0.1 m/s) E/A Ratio 1.4 MV E/E' LAT 7.61 (<14) MV E' Average 0.108 m/s MV E/E'(average) 8.69 Aortic Valve AoV Vmax 1.25 m/s LVOT Vmax 1.40 m/s AoV Peak Grad 6.2 mmHg LVOT Peak Grad 7.9 mmHg AoV Area (Vmax) 3.34 cm2 LVOT VTI 0.288 m AoV VTI 0.264 m LVOT Mean Grad 3.8 mmHg AoV Mean Clifford. 0.84 m/s LVOT SV 85.52 mL AoV Mean Grad 3.3 mmHg LVOT Diam s 1.90 cm AoV Area (VTI) 3.24 cm2 AV Regurg Peak Gr. 6.22 mmHg Velocity Ratio 1.12 Mitral Valve MV DT 204 (160-240 msec) MV Vmax TIPS 0.93 m/s MV Mean Grad 1.2 (<2mmHg) MV VTI 0.303 m Pulmonary Valve PV Vmax 1.06 (0.5-1.5 m/s) RVOT Vmax 0.64 m/s PV Peak Grad 4.5 mmHg RVOT Peak Gr. 1.6 mmHg PV Mean Clifford 0.79 m/s RVOT VTI 0.149 m PV Mean Grad 2.7 mmHg RVOT Mean Gr. 0.9 mmHg Tricuspid Valve RA Pressure 3.00 mmHg TR Vmax 2.34 m/s TR Peak Grad 21.8 mmHg RVSP (TR) 24.8 mmHg
== END 2023-11-30 02:45 ==
LOC: DI 02:25
PROVIDERS: PCP Nurse Practitioner; Visit Provider Nurse Practitioner
DX: R07.9 Chest pain, unspecified (principal); R06.09 Other forms of dyspnea
CPT/HCPCS: 93306

== ENCOUNTER 2023-12-01 01:14 | Outpatient (CLI) | payer MEDICARE, SELFPAY ==
--- NOTE | 2023-12-01 06:00 | ETT_ITS ---
APPROVED REPORT Exam: Incomplete Exercise Treadmill Test Patient Location: Out-Patient Room/Bed: Stress Nurse: Anahy August RN Ordering Provider:YOU FONTENOT, Contact Number: [phone] BMI: 28.56 Baseline Rhythm: Sinus Rhythm, RBBB, ? Blocked PAC's Indications: Chest pain, dyspnea on exertion Medical History Medical History: PTSD, Anxiety, Hypothyroid, COPD/Asthma, Pre-Diabetes, HLd, Long history of smoking marijuana (recently quit smoking and started using edibles) Cardiac Medications: Albuterol, Levothyroxine, Atorvastatin, Gabapentin, Meloxicam, Aspirin, Trelegy Elipta, Qvar Redihaler, Anoro Eliipta Allergies: Scallops Cardiac Risk Factors: Unknown family history, pre DM, COPD, HLD, former smoker Previous Cardiac Procedures: None Pretest Chest Pain Characteristics: None Exercise History: Indeterminate Physical Disabilities: None Lung Sounds: LCTA Heart Sounds: Distant, irregular Stress Test Details Test: Exercise stress testing was performed using a Bryan protocol. Rest Stress HR Resting HR Supine: 63 bpm Max Heart Rate (APMHR): 162 bpm Resting HR Standin bpm Target HR (85% APMHR): 138 bpm Max HR Achieved: 114 bpm % of APMHR: 70 Recovery HR: 64 bpm BP Resting BP Supine: 108/72 mmHg Resting BP Standin/68 mmHg ECG Resting ECG: NSR, RBBB, ? blocked PAC's Stress ECG: Sinus Tachycardia Comment: Stress Test stopped due to significant artifact and inability to interpret while on treadmil l Clinical Reason for Termination: Artifact on 12 lead making interpretation difficult Stress Symptoms: None Rate Pressure Product: 0 Stress ECG Conclusion 1. Resting electrocardiogram showed right bundle branch block 2. Patient exercised on the treadmill. He completed a workload of 4.5 METS at which point the test w as stopped by the nurse due to inability to interpret the electrocardiogram 3. Peak heart rate achieved was 70% of predicted for age. There were no reported symptoms 4. Test is considered nondiagnostic due to inadequate heart rate Stress Test Summary STAGE Time (mins) Speed (mph) Grade (%) HR BP SpO2 SYMPTOMS METS Supine 63 108/72 94% Standing 71 102/68 1 3 1.7 10 114 4.5 1 min recovery 73 3 min recovery 78 6 min recovery 64 Patient presented for stress test today but we were unable to complete the test due to artifact on th e monitor. Patient was on the treadmill and significant artifact was noted. Staff made multiple attem pts to adjust leads and clear artifact but was unsuccessful. Stress test was stopped due to inability to do real time interpretation and inability to read certain leads while patient was exercising. Spo ke to and made her aware of situation. Patient informed that test was considered non-diagnost ic and incomplete. Will contact patients ordering provider with update. Patient left ambulatory in no apparent distress. Was pleasant and cooperative with plan.
== END 2023-12-01 01:34 ==
PROVIDERS: PCP Nurse Practitioner; Visit Provider Nurse Practitioner
DX: R07.9 Chest pain, unspecified (principal); R06.09 Other forms of dyspnea
CPT/HCPCS: 93016; 93018; 93017

== ENCOUNTER → 2023-12-14 08:16 | Outpatient (BNVA) | payer MEDICARE, SELFPAY | PROVIDERS: PCP Nurse Practitioner; Referring Provider Nurse Practitioner; Visit Provider Physician Assistant Surgical | DX: J44.9 Chronic obstructive pulmonary disease, unspecified (principal); F12.20 Cannabis dependence, uncomplicated | CPT/HCPCS: 99214 ==

== ENCOUNTER 2023-12-14 09:11 | Outpatient (CLI) | payer MEDICARE, SELFPAY ==
[2023-12-14 09:52] LABS: Hemoglobin A1C 5.7 % (<5.7)
[2023-12-14 10:34] LABS: Anion Gap 5.5 mmol/L (3-11); BUN 16 mg/dL (7-18); CO2 29.5 mmol/L (21.0-32.0); CREATININE 1.1 mg/dL (0.70-1.30); Calcium 8.7 mg/dL (8.5-10.1); Calculated LDL 139 mg/dL (<100); Chloride 108 mmol/L (98-107); Cholesterol 214 mg/dL (<200); Estimated GFR 77.81 (mL/min/1.73m2); Glucose 96 mg/dL (74-106); HDL Cholesterol 36 mg/dL (40-60); Potassium 4.4 mmol/L (3.5-5.1); Sodium 143 mmol/L (136-145); Triglyceride 198 mg/dL (<150)
== END 2023-12-14 09:12 | disposition home or self-care (01) ==
LOC: LBO 09:11
PROVIDERS: PCP Nurse Practitioner; Visit Provider Nurse Practitioner
DX: R73.03 Prediabetes (principal); E78.00 Pure hypercholesterolemia, unspecified; R79.9 Abnormal finding of blood chemistry, unspecified
CPT/HCPCS: 36415; 80048; 80061; 83036

== ENCOUNTER 2024-02-08 08:29 | Outpatient (CLI) | payer MEDICARE, SELFPAY ==
--- NOTE | 2024-02-08 08:15 | RT.EKG_ITS ---
APPROVED REPORT Exam: Resting ECG Reason for Exam: Patient Location: O HR:59 bpm ECG Measurements Heart Rate 59 AXIS DE 189 P 61 QRSd 130 QRS -25 QT 411 T 7 QTc 408 Conclusion Sinus rhythm...normal P axis, V-rate 50- 99 Right bundle branch block...QRSd>120, terminal axis(90,270)
== END 2024-02-08 08:30 | disposition home or self-care (01) ==
LOC: DI.CARD 08:30
PROVIDERS: PCP Nurse Practitioner; Visit Provider Internal Medicine Cardiovascular Disease
DX: R07.9 Chest pain, unspecified (principal)
CPT/HCPCS: 93010

== ENCOUNTER → 2024-02-08 11:15 | Outpatient (BNVA) | payer MEDICARE, SELFPAY | PROVIDERS: PCP Nurse Practitioner; Referring Provider Nurse Practitioner; Visit Provider Internal Medicine Cardiovascular Disease | DX: I45.10 Unspecified right bundle-branch block (principal); R07.9 Chest pain, unspecified | CPT/HCPCS: 93005; 99214 ==

== ENCOUNTER → 2024-07-12 14:14 | Outpatient (BNVA) | payer MEDICARE, SELFPAY | PROVIDERS: PCP Nurse Practitioner; Referring Provider Nurse Practitioner; Visit Provider Physician Assistant Surgical | DX: J44.9 Chronic obstructive pulmonary disease, unspecified (principal); F12.20 Cannabis dependence, uncomplicated | CPT/HCPCS: 99214 ==

== ENCOUNTER → 2025-01-09 14:04 | Outpatient (BNVA) | payer MEDICARE, SELFPAY | PROVIDERS: PCP Family Medicine; Referring Provider Nurse Practitioner; Visit Provider Physician Assistant Surgical | DX: J45.909 Unspecified asthma, uncomplicated (principal); Z87.891 Personal history of nicotine dependence | CPT/HCPCS: 99214 ==